=== PATIENT | male | born 1960 | race Caucasian/White ===

== ENCOUNTER 2018-02-13 10:04 | Emergency (ER) | payer OTHER, SELFPAY ==
[2018-02-13 10:05] VITALS: BP 163/90; PULSE 84; RESP 16; TEMP 36.4; O2SAT 98; BMI 29.8
--- NOTE | 2018-02-13 10:17 | RAD_ITS ---
STUDY: X-RAY - RIGHT KNEE REASON FOR EXAM: Male, 58 years old. Pain following recent hyperextension of the knee joint. TECHNIQUE: 3 view(s) of the knee. COMPARISON: None. FINDINGS: Normal visualized distal femur. Normal visualized proximal tibia and fibula. Normal proximal tibiofibular articulation. Normal medial femorotibial compartment. Normal lateral femorotibial compartment. Normal patellofemoral articulation. The soft tissue structures are unremarkable. RAD/Knee 3 Views IMPRESSION: Normal x-ray examination of the knee. Electronically Signed: Grant Bai MD at 11:00 EDT Tel [phone], Service support ,
--- NOTE | 2018-02-13 10:32 | ED.VISSUMM ---
- ER Visit Summary Date of Service: 02/13/18 Chief Complaint: Right knee pain History of Present Illness: The patient is a 58 M who injured his right knee 3 days ago. He tripped over a piece of machinery and landed on his right knee. He states he hyperextended it during that process. He has been icing, elevating and using ibuprofen at home. He states it is getting better. He also bought a brace and has been using it. He has a history of drop foot on the left which contributed to his fall. He talked to his employer today and they told him to come in to get an x-ray. Physical Examination: Right knee exam reveals tenderness to palpation in the lower portion of the anterior right knee. There is no swelling. He has full range of motion with pain. Drawer signs are negative Test Results: Right knee x-ray per my interpretation reveals no acute findings Emergency Department Course and Treatment: Patient likely has a sprain of the knee. He has been doing correct management at home including elevation, ibuprofen and bracing. He will continue this at home. Worker's Compensation forms will be completed. [facility]: [] Disposition: Discharge Impression: Right knee sprain This note was generated with LookTracker dictation software. It may contain incorrect words, spelling, and punctuation that were not noted in review of the chart prior to signing ED Disposition - Plan for ED Patient: Chief Complaint: Lower Extremity Injury Referrals: Demond Kim MD [Primary Care Provider] -
--- NOTE | 2018-02-13 11:04 | ED.DEP ---
ED Disposition - Plan for ED Patient: Disposition: Home or Assisted Living Chief Complaint: Lower Extremity Injury Instructions: ED Sprain Knee Referrals: Demond Kim MD [Primary Care Provider] -
[2018-02-13 11:32] VITALS: BP 127/88; PULSE 61; RESP 15; O2SAT 98
== END 2018-02-13 11:33 | disposition home or self-care (01) ==
PROVIDERS: Emergency Provider Emergency Medicine; Family Provider Family Medicine; PCP Family Medicine
DX: S83.91XA Sprain of unspecified site of right knee, initial encounter (principal); M21.372 Foot drop, left foot; E11.9 Type 2 diabetes mellitus without complications; W01.0XXA Fall on same level from slipping, tripping and stumbling without subsequent striking against object, initial encounter; Y93.9 Activity, unspecified; Y92.9 Unspecified place or not applicable; Z79.84 Long term (current) use of oral hypoglycemic drugs; Z79.899 Other long term (current) drug therapy
CPT/HCPCS: 73562; 99282

== ENCOUNTER 2021-04-24 12:52 | Outpatient (RCR) | payer MEDICAID, SELFPAY ==
--- NOTE | 2021-04-24 14:46 | HP.PTEVAL_ITS ---
Patient's Visit Information NICOLE MCKINNON is a 61 year old M referred to Physical Therapy by NAREN OLIVER with a diagnosis of L TSA 04/08/21. Date of Evaluation: 04/24/21 Physical Therapist: Julio Andrews, PT, ATC - Visit Plan Frequency: 2-3x /Week Duration: 4-6 Months Plan: L shoulder AROM/PROM/Mobs, stretching and strengthening, scap stab ex's, UBE, and HEP - Subjective DOS: 04/08/21. Pt reports he had a L shoulder replacement at that time. Pt reports he was in the hospital for 1 day, and has been home since. 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 Pt reports he has a sling but has not been wearing it since the surgeon told him he was healing well. Pt reports he has to sleep on a lazy boy chair sometimes secondary to L shoulder pain. No tingling or numbness in L UE at this time. Pt is L hand dominant. Pt reports he has just been resting his L shoulder over the past 2 weeks, but knows he needs to get his shoulder moving now. Pt reports his L shoulder pain is 0/10 at rest, 4/10 pain at worst - Pain L shoulder Pain Intensity (Out of 10): 0 Pain Intensity Range: 4 - Objective Neuro: B UE sensation is WNL to lgiht touch. B bicepital reflex= 2/3. Observation: Incision is healing well. No signs of infection. ROM: R shoulder flex= 140, abd= 125, ER= 60, IR mod limited. L shoulder flex= 75, abd= 45, ER= 0. MMT: L shoulder 3-/5. R shoulder 5/5 throughout - Goals Goal 1:: Decrease L shoulder pain x 50% to aid with sleep Goal Time Frame: 4-6 Weeks Goal 2:: Increase L shoulder strength x 1 grade to aid with IADL's Goal Time Frame: 4-6 Weeks Goal 3:: Increase L shoulder flex and abd ROM x 40 degrees to aid with overhead activity Goal Time Frame: 4-6 Weeks Goal 4:: I with HEP Goal Time Frame: 4-6 Weeks - Rehabilitation Potential Physical Therapy Diagnosis: Pt has L shoulder pain, weakness, and limited ROM secondary to L TSA Rehabilitation Potential: Good - Anticipated Interventions Patient/Client Instruction: Educate patient on: Condition, Plan of Care For the Purpose of:: To improve self management Therapeutic Exercise to Include: Strength training, Postural training, Flexibilty training, Passive ROM, Active ROM, Scapular Strength/Stabilization For the Purpose of:: To decrease pain, To decrease swelling/inflammation, To increase ROM, To improve muscle performance and motor function Cryotherapy (ice pack, ice massage): Yes For the Purpose of:: To decrease pain Thank you for the opportunity to evaluate your patient. For Medicare and Medicare HMO plans, please review the plan of care and approve it. It will need to be FAXED BACK to us at [phone] for Medicare purposes. For Medicare only, by signing this I certify the plan of care. Please let me know if there are questions or concerns regarding this plan of care. Physician Signature: Date:
--- NOTE | 2021-07-03 07:59 | HP.PT.NRP ---
NICOLE MCKINNON was seen in my office for initial evaluation on 04/24/21. The following Plan of Care was established for this patient: Initial Frequency: 2-3x /Week Initial Duration: 4-6 Months Patient/Client Instruction: Educate patient on: Condition, Plan of Care For the Purpose of:: To improve self management Therapeutic Exercise to Include: Strength training, Postural training, Flexibilty training, Passive ROM, Active ROM, Scapular Strength/Stabilization For the Purpose of:: To decrease pain, To decrease swelling/inflammation, To increase ROM, To improve muscle performance and motor function Cryotherapy (ice pack, ice massage): Yes For the Purpose of:: To decrease pain This patient was last seen in our office . Pertinent comments regarding their Physical therapy will appear below: Pt was evaluated for L shoulder pain on the date of 04/24/2021. Pt has not returned through todays date, and is discontinued at this time. At this point I will be discontinuing this patient from physical therapy. I would be happy to see this patient again in the future if found appropriate by the physician. Thank you! Julio Andrews, PT, ATC Balance/Gait/Functional tests - Balance/Special Test Scores Quick DASH Score: 59.0900
== END 2021-04-24 19:00 | disposition home or self-care (01) ==
LOC: PT 12:52
PROVIDERS: PCP Family Medicine
DX: Z47.1 Aftercare following joint replacement surgery (principal); Z96.612 Presence of left artificial shoulder joint
CPT/HCPCS: 97140; 97161

== ENCOUNTER 2022-09-01 22:30 | Emergency (ER) | payer MEDICAID, SELFPAY ==
[2022-09-01 22:31] VITALS: BP 178/88; PULSE 86; RESP 18; TEMP 36.6; O2SAT 98; BMI 34.9
--- NOTE | 2022-09-01 23:01 | EDS_ITS ---
HPI History of Present Illness Chief Complaint: Hyperglycemia Informant: patient and spouse/S.O. Onset/Context/Timing Onset: Days Context: Gradual Onset Timing: Continuous Current Severity: Mild Maximum Severity: Mild Narrative Narrative: 62-year-old male history of insulin-dependent diabetes, brain tumor and nonsmall cell lung cancer. He had elevated blood sugars for almost a week. Today his took his blood sugar was 630. She gave him subcu insulin 48 units x 2. Her last check was 586. Her blood sugar checked here was 389. He has had a mild cough. Denies any vomiting or diarrhea. No fever. No dysuria. He has never had DKA before. Prior similar symptoms: Yes Recent Illness/Hospitalization: No PFSH [facility] Medical History Diabetes High cholesterol Small cell lung cancer Home Medications Lovastatin [Mevacor] 80 mg PO DAILY 05/17/16 [History Last Taken Unknown] baclofen 10 mg tablet 10 mg PO QHS 05/17/16 [History Last Taken Unknown] coenzyme Q10 300 mg capsule (Co Q-10) 600 mg PO DAILY 05/17/16 [History Last Taken Unknown] glimepiride 4 mg tablet 4 mg PO DAILY 05/17/16 [History Last Taken Unknown] lisinopril 20 mg tablet 20 mg PO DAILY 05/17/16 [History Last Taken Unknown] metformin 500 mg tablet 1,000 mg PO BIDCM 05/17/16 [History Last Taken Unknown] multivitamin (Daily Multiple tablet) 1 ea PO DAILY 05/17/16 [History Last Taken Unknown] omega-3 fatty acids-fish oil 300 mg-1,000 mg capsule 1 ea PO DAILY 05/17/16 [History Last Taken Unknown] pioglitazone 30 mg tablet 30 mg PO DAILY 05/17/16 [History Last Taken Unknown] alectinib 150 mg capsule (Alecensa) 600 mg PO BID 09/01/22 [History Last Taken Unknown] Allergy/AdvReac Type Severity Reaction Status Date / Time No Known Allergies Allergy Verified 09/01/22 22:37 Social History Smoking Status: Never smoker ROS ROS ED ROS Narrative Cough. Elevated blood sugar. Review of Systems ROS Unobtainable: Denies due to encephalopathy Constitutional Constitutional ED: Denies chills or fever(s) Eyes Eyes: Denies blurry vision ENT ENT ED: Denies ear pain Cardiovascular Cardiovascular: Denies chest pain Respiratory/Chest Respiratory/Chest: Reports cough; Denies dyspnea Gastrointestinal Gastrointestinal: Denies abdominal pain, constipation or diarrhea Genitourinary Genitourinary ED: Denies dysuria or hematuria Musculoskeletal Musculoskeletal: Denies arthralgias Integumentary Denies abscess Neurologic Neurologic: Denies headache(s) Psychiatric Psychiatric: Denies anxiety Endocrine Endocrinology: Denies cold intolerance Hematologic/Lymphatic Hematologic/Lymphatic: Reports none Allergic/Immunologic Allergic/Immunologic ED: Denies mouth swelling or tongue swelling EXAM Physical Exam Narrative Exam Narrative: 62-year-old male no acute distress. Vital signs stable afebrile. Does not look septic or toxic. Pulse ox 90% on room air no hypoxia. No distress. H EENT exam unremarkable. Neck nontender no JVD. No lymphadenopathy. Lungs clear to auscultation bilaterally. Heart regular rhythm no murmur. Abdomen soft nontender. Moving all 4 extremities. He is awake and alert. Answering questions and following commands. Const Vital Signs: 09/01/22 22:31 Temperature 98 F Temperature Source Temporal Pulse Rate 86 Respiratory Rate 18 Blood Pressure 178/88 H Blood Pressure Mean 118 Pulse Ox 98 Oxygen Delivery Method Room Air Positive well nourished, well developed and obese; Negative for cachectic, contractures or unkempt General Appearance ED: well developed; Negative for unkempt, cachectic or contractures Nutritional Appearance: obese; Negative for cachectic HEENT Reports moist mucous membranes; Denies dry mucous membranes Negative for trauma or tenderness Mouth ED: No dry mucous membranes Mouth: No dry mucous membranes Eyes PERRL and EOMs intact bilaterally General Eye ED: Negative for pale conjunctiva or scleral icterus Neck no lymphadenopathy, supple and no JVD General: Negative for tenderness Lymph Lymphatic: Negative for other Resp normal respiratory effort Effort and Inspection: Negative for retractions Auscultation: Negative for rales, rhonchi or wheezes Cardio regular rate, regular rhythm, S1 normal heart sound, S2 normal heart sound and no murmurs Palpation: Negative for palpable S3 Rate: Negative for bradycardia Rhythm: Negative for abnormal rhythm GI normal to inspection, nondistended, normoactive bowel sounds, non-tender, non- distended and no masses Inspection: Negative for abdominal distention Auscultation: normoactive bowel sounds Palpation: soft; Negative for tender Back/Spine no CVA tenderness General Back: Negative for CVA tenderness Cervical Spine: Negative for cervical spine tenderness Thoracic Spine / Upper Back: Negative for thoracic spinal tenderness Lumbar Spine / Lower Back: Negative for lumbar spinal tenderness Extremity normal to inspection General Extremety ED: Negative for edema or tenderness General Extremity: Negative for edema Neuro oriented x3 Sensorium / Orientation: alert; Negative for orientation impaired, lethargic or stuporous Motor Exam: strength 5/5 throughout Psych mental status grossly normal Appearance: Negative for unkempt Attitude: No agitated Mood & Affect: Negative for depressed, anxious or tearful Skin no rashes or lesions noted and no wounds General Skin Exam: elasticity normal Lesions: No lesion noted Rashes: No rashes noted Trauma: Negative for abrasion Wounds: Negative for wounds noted MDM MDM MDM Narrative Medical decision making narrative: Diabetic with elevated blood sugars at home for the last week. Today the high was 630. is treating with subcu insulin x2 at home. Our last blood sugar was 389. He will be treated with a liter normal saline. Screening labs and acetone will be obtained. Clinically at this time he does not look like he is in DKA. Exam benign. Repeat exam patient doing well at 12:30 AM. Replete blood sugar was 370. Both he and family are comfortable with him being discharged home. Watch his sugars closely. Follow-up to ensure he is improving. Return if worse. Lab Data Attestation: I reviewed the patient's lab results. Lab results narrative: CBC shows a white count 12.2. H&H of 11.2 and 32.9. Platelets 206. Electrolytes show a gap of 7 BUN and creatinine are 44 and 1.64. Glucose of 430. BG T was 395. Acetone is negative. Patient is not in DKA. No old labs available on our system for comparison. Labs: Laboratory Results - last 24 hr 09/01/22 09/01/22 09/01/22 22:40 22:40 22:44 WBC 12.2 H RBC 3.40 L Hgb 11.2 L Hct 32.9 L MCV 96.8 H MCH 32.9 H MCHC 34.0 RDW Std Deviation 55.7 H RDW Coeff of Rajiv 15.8 H Plt Count 206 MPV 10.4 Sodium 142 Potassium 4.1 Chloride 107 Carbon Dioxide 28.0 Anion Gap 7 BUN 44 H Creatinine 1.64 H Estim Creat Clear Calc 50.60 Est GFR (MDRD) Af Amer 55 L Est GFR (MDRD) Non-Af 45 L BUN/Creatinine Ratio 26.8 H Glucose 430 H Calcium 8.8 Acetone Level POC Glucose 395 H 09/01/22 09/02/22 23:05 00:02 WBC RBC Hgb Hct MCV MCH MCHC RDW Std Deviation RDW Coeff of Rajiv Plt Count MPV Sodium Potassium Chloride Carbon Dioxide Anion Gap BUN Creatinine Estim Creat Clear Calc Est GFR (MDRD) Af Amer Est GFR (MDRD) Non-Af BUN/Creatinine Ratio Glucose Calcium Acetone Level NEGATIVE POC Glucose 370 H Discharge Plan Triage Chief Complaint: Hyperglycemia ED Provider: Moshe Mariee Dx/Rx/DC Orders Prescriptions: No Action multivitamin [Daily Multiple] 1 EACH tablet 1 ea PO DAILY metformin 500 MG tablet 1,000 mg PO BIDCM lisinopril 20 MG tablet 20 mg PO DAILY baclofen 10 MG tablet 10 mg PO QHS glimepiride 4 MG tablet 4 mg PO DAILY pioglitazone 30 MG tablet 30 mg PO DAILY Co Q-10 300 MG capsule 600 mg PO DAILY omega-3 fatty acids-fish oil 1 EACH capsule 1 ea PO DAILY Lovastatin [Mevacor] 40 MG tablet 80 mg PO DAILY Alecensa 150 mg Capsule 600 mg PO BID Rx Instructions: must administer with a meal/food Primary Care Provider: Demond Kim Referrals: Demond Kim MD [Primary Care Provider] -
[2022-09-01 23:06] LABS: Bedside Glucose 395 mg/dL (74-106)
[2022-09-01 23:10] LABS: Hematocrit 32.9 % (40-54); Hemoglobin 11.2 g/dL (13.0-16.5); Mean Corpuscular Hgb 32.9 pg (27.0-32.0); Mean Corpuscular Volume 96.8 fL (80-94); Mean Platelet Vol. 10.4 fl (6.2-12.0); Platelet Count 206 K/mm3 (150-450); RBC Distribution Width CV 15.8 % (11.6-14.6); RBC Distribution Width SD 55.7 fl (35.1-43.9); White Blood Count 12.2 K/mm3 (4.4-11.0)
[2022-09-01 23:24] LABS: Anion Gap 7 (5-15); BUN 44 mg/dL (7-18); BUN/Creat Ratio 26.8 RATIO (10-20); Calcium,Total 8.8 mg/dL (8.5-10.1); Chloride 107 mmol/L (98-107); Creatinine, Serum 1.64 mg/dL (0.70-1.30); EST Glomerular Filtration Rate 45 mL/min (>60); Est Glom Filt Rate - Afr Amer 55 mL/min (>60); Glucose 430 mg/dL (74-106); Potassium 4.1 mmol/L (3.5-5.1); Sodium Level 142 mmol/L (136-145)
[2022-09-02] MEDS: 0.9% Normal Saline 1,000 ML 1000 ML IV (00:05)
[2022-09-02 00:21] LABS: Bedside Glucose 370 mg/dL (74-106)
[2022-09-02 00:39] VITALS: BP 140/74; PULSE 88; RESP 17; RESP 18; O2SAT 98
== END 2022-09-02 00:40 | disposition home or self-care (01) ==
PROVIDERS: Emergency Provider Emergency Medicine; PCP Family Medicine; Visit Provider Emergency Medicine
DX: E11.65 Type 2 diabetes mellitus with hyperglycemia (principal); E78.00 Pure hypercholesterolemia, unspecified; Z85.118 Personal history of other malignant neoplasm of bronchus and lung; Z79.899 Other long term (current) drug therapy; Z79.84 Long term (current) use of oral hypoglycemic drugs
CPT/HCPCS: 80048; 82009; 82962; 85027; 99283; J7030; A4216

== ENCOUNTER 2025-06-16 01:07 | Observation (INO) | payer MEDICARE, SELFPAY ==
[2025-06-16] VITALS (15 sets, daily range): BP systolic 139–171; BP diastolic 77–92; PULSE 83–97; RESP 16–18; TEMP 36.2–37.1; O2SAT 92–98; BMI 32.7; BMI 33.0
--- NOTE | 2025-06-16 01:25 | ED.VIS.STROK ---
HPI History of Present Illness Chief Complaint: Alt LOC Informant: patient, spouse/S.O. and EMS Narrative Narrative: 65-year-old male brought in due to confusion. I met EMS in the room and evaluated the patient initially, the report was that he was acting funny, trying to go outside in bare feet and underwear trying to say that he had something to do but then acted confused and could not think of what he wanted to say, he was going to the kitchen sink and telling his that he needed to use the bathroom and was about to start urinating before she intervened. She came a little later and provided more history including some of these details and the fact that he was last normal at about 2030 in the evening, except that she noticed his left eyelid seemed like it was a little droopy. He went to bed and then got up acting like this, arrives here around 0115. Patient denies having any pain. He is on no anticoagulants. No recent injury or head trauma. states that he is an insulin-dependent diabetic but does not take his insulin like he is supposed to. She also states that he has small cell lung cancer as well as some type of mass in his brain, she is not sure if it is the small cell lung cancer or something different, but he had some gamma knife treatments for it to the point where they had it shrunk down to the size of a pea. She states he is supposed to be on chemotherapy but insurance has not covered it so they have not had anything started yet. He has never had symptoms like this before. [facility] Medical History High cholesterol Diabetes Small cell lung cancer Medical History unable to obtain Home Medications ?Medication ?Instructions ?Recorded ?Last Taken ?Type coenzyme Q10 300 mg capsule (Co 600 mg PO DAILY 05/17/16 Unknown History Q-10) omega-3 fatty acids-fish oil 300 1 ea PO DAILY 05/17/16 Unknown History mg-1,000 mg capsule atorvastatin 20 mg tablet 20 mg PO QHS 06/16/25 Unknown History dulaglutide 4.5 mg/0.5 mL 4.5 mg subcut QWEEK 06/16/25 Unknown History subcutaneous pen injector (Trulicity) insulin glargine U-300 conc 300 40 unit subcut BID 06/16/25 Unknown History unit/mL (3 mL) subcutaneous pen (Toujeo Max U-300 SoloStar) insulin lispro 100 unit/mL 1 sliding scale dose subcut TIDCM 06/16/25 Unknown History subcutaneous pen levetiracetam 750 mg tablet 750 mg PO BID 06/16/25 Unknown History lorlatinib 100 mg tablet (Lorbrena) 100 mg PO DAILY 06/16/25 Unknown History sertraline 100 mg tablet 100 mg PO DAILY 06/16/25 Unknown History terbinafine HCl 250 mg tablet 250 mg PO DAILY 06/16/25 Unknown History vitamin B complex 1 tab PO DAILY 06/16/25 Unknown History Allergy/AdvReac Type Severity Reaction Status Date / Time No Known Allergies Allergy Verified 09/01/22 22:37 Family History no significant family his Surgical History unable to obtain Social History Smoking Status: Never smoker ROS ROS ED Constitutional Constitutional ED: Denies chills or fever(s) Eyes Eyes: Denies change in vision or diplopia ENT ENT ED: Denies rhinorrhea or sore throat Cardiovascular Cardiovascular: Denies chest pain or palpitations Respiratory/Chest Respiratory/Chest: Denies cough or dyspnea Gastrointestinal Gastrointestinal: Denies abdominal pain, diarrhea, nausea or vomiting Genitourinary Genitourinary ED: Denies dysuria or hematuria Musculoskeletal Musculoskeletal: Denies back pain or neck pain Integumentary Denies abscess or rash Neurologic Neurologic: Reports abnormal speech and confusion; Denies headache(s), paresthesias or weakness Psychiatric Psychiatric: Denies anxiety or suicidal thoughts EXAM Physical Exam Const Vital Signs: 06/16/25 01:10 06/16/25 01:10 06/16/25 01:14 Temperature 98.6 F 98.7 F Temperature Source Oral Oral Pulse Rate 93 94 Respiratory Rate 16 16 Respiratory Effort Normal Respiratory Pattern Normal Blood Pressure 139/87 H 159/82 H Blood Pressure Mean 104 107 Pulse Ox 95 96 Oxygen Delivery Method Room Air Room Air 06/16/25 01:31 06/16/25 01:39 06/16/25 01:45 Temperature Temperature Source Pulse Rate 88 91 Respiratory Rate 18 16 Respiratory Effort Respiratory Pattern Blood Pressure 143/89 H 158/79 H Blood Pressure Mean 107 105 Pulse Ox 96 96 96 Oxygen Delivery Method Room Air Room Air Room Air 06/16/25 02:15 07/20/25 02:45 06/16/25 03:00 Temperature Temperature Source Pulse Rate 86 85 86 Respiratory Rate 16 18 16 Respiratory Effort Respiratory Pattern Blood Pressure 150/77 H 145/84 H 142/92 H Blood Pressure Mean 101 104 108 Pulse Ox 96 96 96 Oxygen Delivery Method Room Air Room Air Room Air Positive well nourished and well developed General Appearance ED: well developed and NAD HEENT Reports moist mucous membranes normocephalic and atraumatic Eyes PERRL and EOMs intact bilaterally Neck full ROM, no lymphadenopathy and supple Chest Wall inspection of chest normal and palpation of chest normal Resp normal respiratory effort and clear to auscultation bilaterally Cardio regular rate, regular rhythm and no murmurs GI non-tender and non-distended Auscultation: normoactive bowel sounds Palpation: soft Back/Spine no CVA tenderness General Back: other FROM Extremity normal to inspection General Extremety ED: Negative for edema, pulses abnormal or tenderness General Extremity: Negative for edema or pulses abnormal Neuro oriented x3, CN's II-XII intact bilaterally and no sensory deficits noted Neuro Narrative: Mild aphasia and dysarthria. States he feels tired and keeps wanting to shut his eyes but alerts to voice every time he is asked. Visual cramer are all intact. Extraocular movements intact. No lower facial droop or forehead asymmetry. No lateralizing neurologic findings in the periphery. Sensorium / Orientation: awake and alert Motor Exam: strength 5/5 throughout Skin no rashes or lesions noted and no wounds MDM MDM MDM Narrative Medical decision making narrative: Stroke alert was called given his acute expressive aphasia that seems to be presenting like disorientation, he is outside of the time window for thrombolytics since he woke up this way and went to bed more than 4 hours ago, we did CT and CTA simultaneously, I reviewed the images and I agree with the reports from the radiologist, suggesting no bleed and no LVO. I discussed with stroke neurology, who agrees with working him up as a possible acute stroke. Apparently he has a cerebral mass that was noted in the past that he received gamma knife for, there is no indication of any mass effect or edema on the CT. His status is unchanged neurologically and reevaluation. Discussed with hospitalist for admission for continued stroke workup. Lab Data Attestation: I reviewed the patient's lab results. Labs: Laboratory Results - last 24 hr 06/16/25 06/16/25 01:17 01:20 WBC 9.7 RBC 4.18 L Hgb 13.4 Hct 36.4 L MCV 87.1 MCH 32.1 H MCHC 36.8 H RDW Std Deviation 39.3 RDW Coeff of Rajiv 12.4 Plt Count 136 L MPV 9.5 Immature Gran % (Auto) 0.300 Neut % (Auto) 68.0 Lymph % (Auto) 21.1 Bowman % (Auto) 6.4 Eos % (Auto) 3.6 Baso % (Auto) 0.6 Absolute Neuts (auto) 6.6 Absolute Lymphs (auto) 2.04 Nucleated RBC % 0 PT 12.7 INR 0.9 APTT 25.2 Sodium 137 Potassium 3.3 Chloride 104 Carbon Dioxide 19.1 L Anion Gap 15 BUN 30 H Creatinine 1.38 H Estim Creat Clear Calc 67.30 Est GFR (MDRD) Non-Af 56 L BUN/Creatinine Ratio 21.4 H Glucose 102 H Calcium 9.1 Troponin T High Sens 20 POC Glucose 102 Radiography Diagnostic Testing: Clinical Impression(s) from Imaging Studies Brain CT 06/16/25 01:29 IMPRESSION: No acute intracranial findings Reading Location: [facility] Head/Neck CTA 06/16/25 01:29 IMPRESSION: No acute cervical or intracranial arterial pathology. No thrombosis, high-grade stenosis, dissection, or aneurysm. Patent dural venous sinuses. Reading Location: [facility]- Rhythm Strip Rhythm Strip: Sinus Rhythm Rate: 90 Ectopy: None EKG Initial EKG: Attestation: I personally reviewed and interpreted this EKG as follows: Interpretation: Sinus Rhythm, No Acute Injury Pattern, RBBB and LAFB Prior EKG tracings: not available for review Prior: No Prior Management Discussion w/another healthcare provider: Hospitalist and [employer] (Stroke neurology) Critical Care Time Critical Care Time: Yes Critical care time (excluding procedures): 30-74 minutes (33 min), Including time spent:, Discussing w/Patient &/or Family/Senior Wealth Advisor, Discussing w/Consultants, Arranging Admission or Transfer and Performing Direct Patient Care at Bedside Discharge Plan Triage Chief Complaint: Alt LOC Other Complaint: Weakness ED Provider: Ten Kaur Dx/Rx/DC Orders Clinical Impression: Expressive aphasia, Chronic renal insufficiency, Disorientation Prescriptions: No Action Co Q-10 300 MG capsule 600 mg PO DAILY omega-3 fatty acids-fish oil 1 EACH capsule 1 ea PO DAILY sertraline 100 mg tablet 100 mg PO DAILY terbinafine HCl 250 mg tablet 250 mg PO DAILY Lorbrena 100 mg tablet 100 mg PO DAILY insulin lispro 100 unit/mL insulin pen 1 sliding scale dose SUBCUT TIDCM Patient Comments: INJECT 30 UNITS SUBCUTANEOUSLY WITH BREAKFAST AND 34 UNITS WITH LUNCH AND 34 UNITS WITH SUPPER PLUS SLIDING SCALE: 3 UNITS FOR EVERY 50 OVER 150 (150 UNITS DAILY TDD) SLIDING SCALE ON PRE MEAL BLOOD SUGAR ONLY insulin glargine U-300 conc [Toujeo Max U-300 SoloStar] 300 unit/mL (3 mL) insulin pen 40 unit subcut BID Trulicity 4.5 mg/0.5 mL pen injector 4.5 mg subcut QWEEK atorvastatin 20 mg tablet 20 mg PO QHS levetiracetam 750 mg tablet 750 mg PO BID vitamin B complex Tablet 1 tab PO DAILY Primary Care Provider: Demond Kim Referrals: Demond Kim MD [Primary Care Provider] - Print Language: Pakistani Disposition Disposition: Acute Care Hospital [facility] NIHSS NIHSS 1a. Level of Consciousness: 1 - Not alert; Arousable by minor stimuli to obey, answer & respond 1b. LOC Questions: 0 - Answers BOTH questions correctly 1c. LOC Commands: 0 - Performs BOTH tasks correctly 2. Best Gaze: 0 - Normal 3. Visual: 0 - No visual loss 4. Facial Palsy: 0 - Normal symmetrical movements 5a. Left Arm: 0 - No drift; arm holds 90 (or 45) degrees for full 10 seconds 5b. Right Arm: 0 - No drift; arm holds 90 (or 45) degrees for full 10 seconds 6a. Left Le - No drift; leg holds 30-degree position for full 5 seconds 6b. Right Le - No drift; leg holds 30-degree position for full 5 seconds 7. Limb Ataxia: 0 - Absent 8. Sensory: 0 - Normal; no sensory loss 9. Best Language: 1 - Rxcr-[id number] aphasia; 10. Dysarthria: 1 = Gryu-ug-wjlpqtqv dysarthria; 11. Extinction and Inattention: 0 - No abnormality Total: 3 Stroke Questions Stroke Team Activated: Yes IV Thrombolytic Administered: No (due to timing)
--- NOTE | 2025-06-16 01:29 | CT_ITS ---
PROCEDURE: STROKE BRAIN/HEAD WITHOUT CONT 06/16/2025 REASON FOR EXAM: NEURO DEFICIT, ACUTE, STROKE SUSPECTED TECHNIQUE: STROKE BRAIN/HEAD WITHOUT CONT Coronal and Sagittal reconstruction series were provided. One or more dose reduction techniques were used (e.g., Automated exposure control, adjustment of the mA and/or kV according to patient size, use of iterative reconstruction technique. RADIATION DOSE SUMMARY: CTDlvol: 45 mGy DLP: 864 mGycm COMPARISON: No FINDINGS: Mild atrophy. Arterial calcifications. No acute abnormal brain densities. No intracranial hemorrhage. No hydrocephalus or midline shift. No acute scalp or skull pathology. Unremarkable orbits. Mild sinus opacification. CT/STROKE Brain/Head without Cont IMPRESSION: No acute intracranial findings Reading Location: [place] [id number]
--- NOTE | 2025-06-16 01:29 | CT_ITS ---
PROCEDURE: STROKE CTA HEAD AND NECK W/CON 06/16/2025 REASON FOR EXAM: NEURO DEFICIT, ACUTE, STROKE SUSPECTED TECHNIQUE: STROKE CTA HEAD AND NECK W/CON Multiplanar Sagittal and Coronal images were obtained. One or more dose reduction techniques were used (e.g., Automated exposure control, adjustment of the mA and/or kV according to patient size, use of iterative reconstruction technique). RADIATION DOSE SUMMARY: CTDlvol: 50 mGy DLP: 800 mGycm COMPARISON: Head CT same day FINDINGS: Lung apices are clear. Unremarkable superior mediastinum. 2 cm left thyroid mass, recommend ultrasound. Cervical spine degeneration. No acute neck soft tissue pathology. No abnormal brain enhancement. Unremarkable orbits. Mild sinus opacification. Unremarkable thoracic arch. The common carotid arteries, extracranial internal carotid arteries, and vertebral arteries are patent. No high-grade stenosis, dissection, or aneurysm. There is bilateral, laku-fjrqvvl-bcvq-right, mild/moderate partially calcified bulb region plaque. Intracranial arteries are patent. There is bilateral bulb region calcified plaque. No high-grade stenosis, dissection, or aneurysm. Patent dural venous sinuses. CT/STROKE CTA Head AND Neck W/Con IMPRESSION: No acute cervical or intracranial arterial pathology. No thrombosis, high-grad e stenosis, dissection, or aneurysm. Patent dural venous sinuses. Reading Location: [place] [address]
[2025-06-16 01:33] LABS: Hematocrit 36.4 % (40-54); Hemoglobin 13.4 g/dL (13.0-16.5); Immature Granulocytes Count 0.030 X10^3/uL (0.0-0.0); Mean Corp Hgb Conc 36.8 g/dL (32-36); Mean Corpuscular Volume 87.1 fL (80-94); Mean Platelet Vol. 9.5 fl (6.2-12.0); NRBC Flagged by Analyzer 0 % (0-5); Platelet Count 136 K/mm3 (150-450); RBC Distribution Width CV 12.4 % (11.6-14.6); RBC Distribution Width SD 39.3 fl (35.1-43.9); Red Blood Count 4.18 M/mm3 (4.6-6.2); White Blood Count 9.7 K/mm3 (4.4-11.0)
[2025-06-16 01:44] LABS: Partial Thromboplast Time 25.2 Seconds (24.1-36.2); Prothrombin Time (Protime)PT. 12.7 SECONDS (11.7-14.9)
[2025-06-16 01:55] LABS: Anion Gap 15 (5-15); BUN 30 mg/dL (4-19); BUN/Creat Ratio 21.4 RATIO (10-20); Calcium,Total 9.1 mg/dL (7.6-11.0); Carbon Dioxide 19.1 mmol/L (21.0-32.0); Chloride 104 mmol/L (98-108); Estimated Creatinine Clearance 67.30 ml/min (50-250); Glucose 102 mg/dL (70-99); Potassium 3.3 mmol/L (3.3-5.1); Troponin T High Sensitivity 20 ng/L (<=22)
--- NOTE | 2025-06-16 03:07 | PCM.HP.STD ---
[facility] - General General Date of Admission: 06/16/25 Date of Service: 06/16/25 Chief Complaint: Confusion and Slurred Speech. HPI Narrative SHERI MCKINNON, is a 65 M with a past medical history of hyperlipidemia; on atorvastatin, obesity; with BMI of 32.7 this admission, DM-2; of unknown control on insulin glargine 40U sq BID, insulin lispro SSI TID AC and dulaglutide, history of non-small cell lung cancer; with metastasis to brain on lorlatinib, seizure disorder; on levetiracetam, depression; on sertraline and OA who presents to [facility] ER complaining of confusion and slurred speech. Mr. Mckinnon's reported to the ER physician his last known normal was around 8:30 PM when he went to bed but then when he woke up later around 1:15 AM the patient's noted he was acting funny and trying to go outside with his bare feet and underwear obviously confused. He then went to the kitchen seen telling his that he needed to use the bathroom and was about to start urinating before she intervened. She also noted slurred speech and a questionable transient drooping of the Left eye so she decided to bring him in for further evaluation and treatment. She also informed the ER physician that he does not take his insulin as prescribed and that he had a small mass in his brain with subsequent gamma knife treatments to the point where it shrunk down to the size of a pea but they had not had follow-up imaging since that time. She also mentioned that he is supposed to be on chemotherapy but his insurance has not covered it yet so he has not started it yet. Finally, she denies any similar previous episodes like this in the past. In the ER he was initially called as a 'stroke alert' with head CT without contrast that revealed no acute intracranial findings followed by CTA of the head and neck with IV contrast that revealed no acute cervical or intracranial arterial pathology, no thrombosis, high-grade stenosis, dissection or aneurysm with patent dural venous sinuses. He was then admitted to the PCU under observation status for ongoing care for stay that is expected to be less than 2 midnights. [facility] Medical History (Updated 06/16/25 @ 03:[address] Gabriel Coleman, DO) High cholesterol Diabetes Small cell lung cancer Medical History unable to obtain Home Medications ?Medication ?Instructions ?Recorded ?Last Taken ?Type coenzyme Q10 300 mg capsule (Co 600 mg PO DAILY 05/17/16 Unknown History Q-10) omega-3 fatty acids-fish oil 300 1 ea PO DAILY 05/17/16 Unknown History mg-1,000 mg capsule atorvastatin 20 mg tablet 20 mg PO QHS 06/16/25 Unknown History dulaglutide 4.5 mg/0.5 mL 4.5 mg subcut QWEEK 06/16/25 Unknown History subcutaneous pen injector (Trulicity) insulin glargine U-300 conc 300 40 unit subcut BID 06/16/25 Unknown History unit/mL (3 mL) subcutaneous pen (Toujeo Max U-300 SoloStar) insulin lispro 100 unit/mL 1 sliding scale dose subcut TIDCM 06/16/25 Unknown History subcutaneous pen levetiracetam 750 mg tablet 750 mg PO BID 06/16/25 Unknown History lorlatinib 100 mg tablet (Lorbrena) 100 mg PO DAILY 06/16/25 Unknown History sertraline 100 mg tablet 100 mg PO DAILY 06/16/25 Unknown History terbinafine HCl 250 mg tablet 250 mg PO DAILY 06/16/25 Unknown History vitamin B complex 1 tab PO DAILY 06/16/25 Unknown History Allergy/AdvReac Type Severity Reaction Status Date / Time No Known Allergies Allergy Verified 09/01/22 22:37 Family History no significant family his Surgical History unable to obtain Social History Smoking Status: Never smoker ROS ROS Narrative Review of Systems: Constitutional: Patient denies fever or chills. Eyes: Patient denies change in vision or discharge from eyes. ENT: Patient denies runny nose, sore throat or ear pain. Resp: Patient denies shortness of breath or cough. CV: Patient denies chest pain, palpitations, heart racing or lower extremity edema. GI: Patient denies abdominal pain, nausea, vomiting, diarrhea or constipation. : Patient denies dysuria or hematuria. MSK: Patient denies neck pain or back pain. Skin: Patient denies rash, abscess, wounds or jaundice. Psych: Patient had obvious confusion with bizarre behavior but he denies symptoms of uncontrolled depression or anxiety. Neuro: Patient had slurred speech with transient Left eye droop and confusion as per HPI. He denies headache, paresthesias or other focal neurologic deficits. Allergy: Patient denies lip swelling, tongue swelling or urticaria. Hematology: Patient denies easy bleeding or easy bruisability. Endocrinology: Patient denies polyuria, polydipsia, polyphagia or heat/cold intolerance. 14 point ROS otherwise negative except for positives noted above in HPI. Vital Signs Vital Signs Vital Signs: 06/16/25 01:10 06/16/25 01:10 06/16/25 01:14 Temperature 98.6 F 98.7 F Temperature Source Oral Oral Pulse Rate 93 94 Respiratory Rate 16 16 Respiratory Effort Normal Respiratory Pattern Normal Blood Pressure 139/87 H 159/82 H Blood Pressure Mean 104 107 Pulse Ox 95 96 Oxygen Delivery Method Room Air Room Air 06/16/25 01:31 06/16/25 01:39 06/16/25 01:45 Temperature Temperature Source Pulse Rate 88 91 Respiratory Rate 18 16 Respiratory Effort Respiratory Pattern Blood Pressure 143/89 H 158/79 H Blood Pressure Mean 107 105 Pulse Ox 96 96 96 Oxygen Delivery Method Room Air Room Air Room Air 06/16/25 02:15 06/16/25 02:45 Temperature Temperature Source Pulse Rate 86 85 Respiratory Rate 16 18 Respiratory Effort Respiratory Pattern Blood Pressure 150/77 H 145/84 H Blood Pressure Mean 101 104 Pulse Ox 96 96 Oxygen Delivery Method Room Air Room Air Weight Weight: 241 lb 6.499 oz Body Mass Index (BMI) 32.7 Physical Exam Const alert, oriented x3 and no apparent distress General Appearance: cooperative Orientation / Consciousness: confused HEENT normocephalic, head/scalp atraumatic, hearing grossly normal bilaterally and moist oral mucous membranes Eyes PERRL, EOMs intact bilaterally and conjunctivae normal Neck no lymphadenopathy, supple and no JVD Resp normal respiratory effort, no retractions, no use of accessory muscles and clear to auscultation bilaterally Cardio regular rate and regular rhythm GI normal to inspection, nondistended, normoactive bowel sounds, soft to palpation, non-tender and non-distended GI Narrative: Obese. Extremity normal to inspection, full ROM and no clubbing, cyanosis or edema Skin Skin Narrative: Patient has no evidence of rash, abscess, wounds or jaundice. Neuro oriented x3, CN's II-XII intact bilaterally and moves all extremities Neuro Narrative: Patient noted to have mild dysarthria and aphasia. No facial droop or forehead asymmetry noted. No lateralizing neurologic findings in the periphery with otherwise normal sensory and motor function. Sensorium / Orientation: awake, alert, oriented to person, oriented to place and oriented to time Motor Exam: strength 5/5 throughout Psych affect normal Results Medical Records Data Attestation: I reviewed the patient's medical records Lab / Micro Data Attestation: I reviewed the patient's lab results. 06/16/25 01:20 06/16/25 01:20 Labs: Laboratory Results - last 24 hr 06/16/25 01:17: POC Glucose 102 06/16/25 01:20: WBC 9.7, RBC 4.18 L, Hgb 13.4, Hct 36.4 L, MCV 87.1, MCH 32.1 H, MCHC 36.8 H, RDW Std Deviation 39.3, RDW Coeff of Rajiv 12.4, Plt Count 136 L, MPV 9.5, Immature Gran % (Auto) 0.300, Neut % (Auto) 68.0, Lymph % (Auto) 21.1, [place] % (Auto) 6.4, Eos % (Auto) 3.6, Baso % (Auto) 0.6, Absolute Neuts (auto) 6.6, Absolute Lymphs (auto) 2.04, Nucleated RBC % 0, PT 12.7, INR 0.9, APTT 25.2, Sodium 137, Potassium 3.3, Chloride 104, Carbon Dioxide 19.1 L, Anion Gap 15, BUN 30 H, Creatinine 1.38 H, Estim Creat Clear Calc 67.30, Est GFR (MDRD) Non-Af 56 L, BUN/Creatinine Ratio 21.4 H, Glucose 102 H, Calcium 9.1, Troponin T High Sens 20 Imaging Radiology Impression Brain CT 06/16/25 01:29 IMPRESSION: No acute intracranial findings Reading Location: [facility] Head/Neck CTA 06/16/25 01:29 IMPRESSION: No acute cervical or intracranial arterial pathology. No thrombosis, high-grade stenosis, dissection, or aneurysm. Patent dural venous sinuses. Reading Location: [facility] Assessment & Plan Assessment/Plan (1) Expressive aphasia: (2) Confusion: (3) Diabetes mellitus, type 2: QUALIFIERS: Diabetes mellitus complication status: without complication Diabetes mellitus mcc insulin use: with mcc use Qualified Code(s): E11.9 - Type 2 diabetes mellitus without complications; Z79.4 - assisted (current) use of insulin (4) Small cell lung cancer: QUALIFIERS: Laterality: unspecified laterality Lung location: unspecified part of lung Qualified Code(s): C34.90 - Malignant neoplasm of unspecified part of unspecified bronchus or lung (5) Seizure disorder: (6) Obesity (BMI 30.0-34.9): (7) High cholesterol: PLAN: Plan 1. Mild aphasia and dysarthria with confusion and transient left eyelid droop concerning for TIA versus CVA - Admit to PCU under observation status. Give baby aspirin and statin. Check MRI of brain to evaluate for CVA. Check echocardiogram to evaluate LVEF. Check TSH, B12, folate, lipid profile, ESTHER and UDS to evaluate for possible reversible causes of confusion and neurologic dysfunction. Finally, we will consult [facility] to see this patient on rounds in the a.m. for further recommendations with help appreciated in advance. 2. DM-2; of unknown control on insulin glargine 40U sq BID, insulin lispro SSI TID AC and dulaglutide complicating #1 - ADA diet if patient passes swallow evaluation. Check FSBS q. AC/HS plus SSI. Cut insulin glargine dose by approximately 30% to avoid hypoglycemia. Check hemoglobin A1c to objectively evaluate quality of diabetic control. 3. History of non-small cell lung cancer; with metastasis to brain on lorlatinib compounding #1 & #2 - No signs of mass on head CT. Check CT scan of lung to evaluate for mass. 4. Seizure disorder; on levetiracetam BID adding to the medical complexity of #1 - #3 - Maintain levetiracetam as before and check EEG. Check serum prolactin to evaluate for evidence seizure activity. 5. Obesity; with BMI of 32.7 this admission adding to the burden of disease outlined from #1 - #3 - Weight loss will be recommended. Check TSH. This complicates his case may Hampe recovery. 6. Hyperlipidemia; on atorvastatin - Maintain statin and check Lipid Profile in light of #1. 7. Depression; on sertraline - Resume sertraline as previous. 8. OA - Give acetaminophen as needed pain or fever. 9. DVT prophylaxis - Enoxaparin 40 mg sq daily plus SCD's. Total time: Approximately (but not less than) 85 minutes. Charges/Coding Visit Charges OBSV E&M: 96200 Observ/hosp same date L3
--- NOTE | 2025-06-16 03:45 | MRI_ITS ---
PROCEDURE: BRAIN WITHOUT CONTRAST 06/16/2025 REASON FOR EXAM: MILD APHASIA AND DYSARTHRIA W/ CONFUSION; R/O CVA. TECHNIQUE: BRAIN WITHOUT CONTRAST Multiplanar and multisequence images were obtained. COMPARISON: Noncontrast CT head, CTA head and neck earlier same day. FINDINGS: Visualization is slightly limited by metallic streak artifact from right dental hardware. Brain: Mild cerebral atrophy and chronic periventricular white matter disease. No area of mismatched hyperintensity on diffusion-weighted imaging to suggest acute infarct. Tiny chronic infarct in the left cerebellar lobe. No abnormal hemosiderin deposition visualized on GRE imaging. Ventricles: Consistent with the overall degree of mild cerebral atrophy. No ventriculomegaly. Major Intracranial Vessels: Better visualized on same-day CTA. Sinuses: Minimal mucosal thickening. Mastoids: Clear. Unremarkable orbits. MRI/Brain without Contrast IMPRESSION: 1. No acute abnormality visualized on MRI brain given limitations. 2. Chronic findings as described. Reading Location: [id number]
--- NOTE | 2025-06-16 03:45 | ECHOCS_ITS ---
Reason For Study Reason For Study: TIA/CVA Procedure This was a 2D Doppler, Color Flow transthoracic echocardiogram. The study was technically difficult. Contrast injection was performed. Exam performed portable in patient room. Left Ventricle Normal LV size. Moderate eccentric left ventricular hypertrophy. The left ventricular ejection fraction is 45 %. Stage 1 diastolic dysfunction. There is borderline global hypokinesis of the left ventricle. Right Ventricle Normal RV size. Normal systolic function. Atria Normal left atrium. Normal right atrium. Mitral Valve Normal mitral valve. Tricuspid Valve Normal tricuspid valve. Mild (1+) tricuspid valve insufficiency. Pulmonary artery systolic pressure is 30 mmHg. Aortic Valve Trisinus/trileaflet aortic valve. Mild focal aortic valve calcification. Mild (1+) aortic valve insufficiency. Pulmonic Valve The pulmonic valve is not well visualized. Great Vessels Mildly dilated aortic root. The pulmonary artery is normal size. Inferior vena cava collapse with respiration. Pericardium/Pleural No pericardial effusion. Medication Diluted definity 3ml given slow IV push to enhance endocardial definition. MMode/2D Measurements & Calculations LVIDd: 5.1 cm IVSd: 1.6 cm Ao root diam: 3.9 cm LVIDs: 4.0 cm LVPWd: 1.1 cm RVDd: 3.5 cm FS: 21.7 % LAV(MOD-bp): 73.0 ml LVAd ap4: 33.7 cm2 SV(MOD-sp4): 55.6 ml LAV(MOD-bp) Indexed: 31.5 ml/m2 LVLd ap4: 8.1 cm SI(MOD-sp4): 24.0 ml/m2 LAV(MOD-sp2): 74.6 ml EDV(MOD-sp4): 115.9 ml LAV(MOD-sp4): 63.4 ml EDV(sp4-el): 119.0 ml LVAs ap4: 23.5 cm2 LVLs ap4: 7.4 cm ESV(MOD-sp4): 60.2 ml ESV(sp4-el): 63.5 ml EF(MOD-sp4): 48.0 % EF(sp4-el): 46.6 % SV(sp4-el): 55.5 ml LA A4 area: 20.3 cm2 LA dimension(2D): 3.9 cm RA A4 area: 16.4 cm2 Time Measurements MV dec time: 0.26 sec Doppler Measurements & Calculations MV E max ankit: 47.1 cm/sec Lat Peak E' Ankit: 9.7 cm/sec Med Peak E' Ankit: 6.0 cm/sec MV A max ankit: 61.6 cm/sec E/E' lat: 4.9 E/E' med: 7.8 MV E/A: 0.76 MV V2 max: 71.2 cm/sec MV P1/2t max ankit: 60.1 cm/sec Ao V2 max: 101.3 cm/sec MV max P.0 mmHg MV P1/2t: 93.3 msec Ao max P.2 mmHg MV V2 mean: 42.0 cm/sec MV dec slope: 188.7 cm/sec2 Ao V2 mean: 73.9 cm/sec MV mean P.82 mmHg MVA(P1/2t): 2.4 cm2 Ao mean P.5 mmHg MV V2 VTI: 17.3 cm Ao V2 VTI: 21.5 cm AV (velocity ratio): 0.76 AI max ankit: 408.1 cm/sec LV V1 max: 71.8 cm/sec PA V2 max: 93.3 cm/sec AI max P.6 mmHg LV V1 max P.1 mmHg AI dec slope: 182.6 cm/sec2 LV V1 mean P.1 mmHg AI P1/2t: 654.4 msec LV V1 mean: 48.3 cm/sec LV V1 VTI: 16.4 cm TR max ankit: 263.3 cm/sec TR max P.7 mmHg ECHO/Echo Complete W/ Contrast Interpretation Summary Normal LV size. The left ventricular ejection fraction is 45 %. Stage 1 diastolic dysfunction. Mild (1+) aortic valve insufficiency. Contrast injection was performed. Ordering Physician: Gabriel Coleman Performed By: Jarrett Torres RCS
[2025-06-16 04:59] LABS: Troponin T High Sens 2 HR 53 ng/L (<=22)
[2025-06-16] MEDS: 0.9% Normal Saline (1000mL) 1,000 ML 50 ML IV (05:25)
[2025-06-16 06:18] LABS: Troponin T High Sens 4 HR 53 ng/L (<=22)
[2025-06-16 06:33] LABS: FOLATES,SERUM (FOLIC ACID) 19.40 ng/mL (4.60-34.80)
[2025-06-16 06:47] LABS: Alcohol, Blood (Medical)-Serum < 10.1 mg/dL (<=10.0)
[2025-06-16 07:19] LABS: Cholesterol 155 mg/dL (<=200); Low Density Lipoprotein Calc. 79 mg/dL; Triglycerides 196 mg/dL; Very Low Density Lipoprotein 39 mg/dL (5-40); Vitamin B12 544 pg/mL (180-914); cholesterol:hdl ratio screen 4.26
--- NOTE | 2025-06-16 09:07 | PN_ITS ---
Progress Note Patient is a 65-year-old gentleman admitted with confusion. He was also reported to have a left facial droop. Patient was admitted for workup of di sorientation. Physical Exam Narrative GENERAL: cooperative HEENT: Atraumatic; normocephalic EYES; Anicteric, Normal Conjunctiva NECK; supple, normal thyroid, RESPIRATORY: Diminished to auscultation CARDIOVASCULAR: Regular S1 S2, GI: soft, normoactive bowel sounds, : No Renal angle tenderness; EXTREMITIES: No edema, no clubbing, MUSCULOSKELETAL: no muscle wasting NEURO: Awake; no lateralizing signs. 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 Suspected CVA ? Patient presented with disorientation as well as expressive aphasia. Admitted to a monitored bed placed on Q4 neurochecks. MRI was ordered for subsequent alicia l 2. 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 Patient is on lorlatinib; plan is for patient to resume care with primary oncologist following discharge 3. Diabetes mellitus type II -patient's oral hypoglycemics held. Placed on long acting insulin, Accu-Cheks a.c. and at bedtime and covered with sliding scale insulin 4. Dyslipidemia ?Patient is on statin therapy, continued at home dose 5. Seizure disorder Patient is on levetiracetam, did continue home 7. Depression with anxiety ? Patient is on sertraline but cannot 8. Class I obesity with BMI of 33 ? Complicating care weight loss advised 9. Renal failure?acute versus chronic ? Patient was placed on IV fluids with subsequent monitoring of electrolyte 10.DVT prophylaxis ? On enoxaparin Time spent in the patient's overall evaluation,decision-making process, review of diagnostic data, adjustment of management, discussion with other providers, nursing nursing and ancillary staff involved in patient's care documentation, 32 Minutes Advance planning; did discuss with the patient regarding advanced directives as well as CODE STATUS. Did explain the various scenarios involved ( FULL CODE, DNR CCA, DNR CCA with no intubation, and DNR CC and what each meant) patient elected elected to remain full code with CPR intubation if warranted. Order was placed. Time spent on discussion 16 minutes. Visit Charges Inpatient E&M: 95841 PROLNG IP/OBS E/M EA 15 MIN Multi Select Codes Visit Charges Visit Charges: 53697 PROLNG IP/OBS E/M EA 15 MIN Hospitalists' Procedures Procedures: 11299 Advncd Care Plan 30 Min
[2025-06-16] MEDS: Vitamin B Comp W-C Capsule 1 CAP PO (09:11)
[2025-06-16] MEDS: Insulin Glargine-YFGN 100 UNIT/ML Pen 30 UNIT SC ×2 (09:11→23:21)
[2025-06-16] MEDS: Aspirin E.C. 81 MG Tablet PO (09:11)
--- NOTE | 2025-06-16 12:28 | NEURO.CONS ---
Assessment and Plan: Neuro Assessment/Plan SHERI MCKINNON is a 65 M with a past medical history of NSCLC off treatment, known brain met s/p gamma knife surgery, being evaluated by Teleneurology for sudden confusion overnight and gradually worsening aphasia and confusion over the course of the last several months. On exam there is clear spatial difficulty concerning for R hemispheric involvement. Has had multiple scans that do not clearly show intracranial tumor spread according to the patient but (who has been sick herself) feels he is not a good historian. Based on history, at this time recommend evaluation for typical things that could cause a 65 yo w a history of intracranial disease to decompensate (seizure, infection) but also for other cancer related disease including leptomeningeal spread and paraneoplastic disease. Plan: - EEG, UA - MRI Brain with con - recommend serum paraneoplastic panel - after MRI Brain with con, recommend LP with the following labs: cell count, protein, glucose, paraneoplastic panel, cytology Will assess if needs to be transferred for OC based on these screening tests I personally attended this patient and spent a total time of 45minutes evaluating this patient including clinical assessment, review of chart, medical history imaging, and determining appropriate treatment and workup. HPI Consult Data Date of Consult: 06/16/25 HPI Narrative HPI Narrative: SHERI MCKINNON, is a 65 M with a past medical history of hyperlipidemia; on atorvastatin, obesity; with BMI of 32.7 this admission, DM-2; of unknown control on insulin glargine 40U sq BID, insulin lispro SSI TID AC and dulaglutide, history of non-small cell lung cancer; with metastasis to brain on lorlatinib, seizure disorder; on levetiracetam, depression; on sertraline and OA who presents to [facility] ER complaining of confusion and slurred speech. Mr. Mckinnon's reported to the ER physician his last known normal was around 8:30 PM when he went to bed but then when he woke up later around 1:15 AM the patient's noted he was acting funny and trying to go outside with his bare feet and underwear obviously confused. He then went to the kitchen seen telling his that he needed to use the bathroom and was about to start urinating before she intervened. She also noted slurred speech and a questionable transient drooping of the Left eye so she decided to bring him in for further evaluation and treatment. She also informed the ER physician that he does not take his insulin as prescribed and that he had a small mass in his brain with subsequent gamma knife treatments to the point where it shrunk down to the size of a pea but they had not had follow-up imaging since that time. She also mentioned that he is supposed to be on chemotherapy but his insurance has not covered it yet so he has not started it yet. Finally, she denies any similar previous episodes like this in the past. In the ER he was initially called as a 'stroke alert' with head CT without contrast that revealed no acute intracranial findings followed by CTA of the head and neck with IV contrast that revealed no acute cervical or intracranial arterial pathology, no thrombosis, high-grade stenosis, dissection or aneurysm with patent dural venous sinuses. He was then admitted to the PCU under observation status for ongoing care for stay that is expected to be less than 2 midnights. Neurologic History Still having difficulty getting words out. Patient states he is feeling well but does not remember what happened last night. Endorses he had a brain tumor on the L side of the brain. Denies recently headaches. Was dx with NSCLC 4 yrs ago, at [facility], PAtient was on a chemo pill and suddenly pt could not afford the pill, in Nov stopped the pill. The gamma knife to the brain was done at [facility], and he had normal MRI as ofr 2 months ago (sx was done 4 yrs ago). Pt has had difficulty and that is when they found the brain tumor. Right after they did gamma knife, there was a yr while things were stable and good. For the last 3 yrs speech has gotten worse. Over the last year he has increased difficulty doing stuff around the house. was in hospital for 5 months and came home in January 2025 and he had not cared for the animals and he was behaving a lot different compared to prior. Neurologic Exam -? General: Laying comfortably in bed; in no acute distress. -? HENT: Normal oropharynx and mucosa. Normal external appearance of ears and nose. Exophthalmos. -? Neck: Supple, no pain or tenderness -? CV:? No peripheral edema. -? Pulmonary:? Normal respiratory effort. -? Ext: No cyanosis, edema, or deformity -? Skin: No rash. Normal palpation of skin.? -? Musculoskeletal: full range of motion; no joint tenderness. Normal digits and nails by inspection. No clubbing. -? NEURO: -? Mental Status: The patient was alert and oriented to time, place, and person. Normal recent/remote memory, concentration, and general fund of knowledge. -? Language: speech is clear.? Naming, repetition, fluency, and comprehension intact. -? Cranial Nerves: PERRL 3 mm/brisk. EOMI, visual cramer full, no facial asymmetry, facial sensation intact, hearing intact, tongue midline there is tremor in the tongue present -? Motor: normal bulk, tone, and strength throughout. No pronator drift or satelliting. Upper and lower extremities equal bilaterally. -? Detailed strength exam as performed by the nurse/JAYASHREE and witnessed by the physician: R L SA 5 5 EE EF 5 5 WE WF Aba Therapist 5 5 HF 5 5 KE KF DF 5 2 PF Spatial difficulty maneuvering the L leg and arm -? Tone: is normal and bulk is normal -? Sensation- Intact to light touch bilaterally -? Coordination: No dysmetria on [id number], finger follow finger or [id number] but has difficulty following the commands on the L -? Gait- deferred [facility] Medical History (Updated 06/16/25 @ 03:[address] Gabriel Coleman, DO) High cholesterol Diabetes Small cell lung cancer Medical History unable to obtain Home Medications ?Medication ?Instructions ?Recorded ?Last Taken ?Type coenzyme Q10 300 mg capsule (Co 600 mg PO DAILY 05/17/16 Unknown History Q-10) omega-3 fatty acids-fish oil 300 1 ea PO DAILY 05/17/16 Unknown History mg-1,000 mg capsule atorvastatin 20 mg tablet 20 mg PO QHS 06/16/25 Unknown History dulaglutide 4.5 mg/0.5 mL 4.5 mg subcut QWEEK 06/16/25 Unknown History subcutaneous pen injector (Trulicity) insulin glargine U-300 conc 300 40 unit subcut BID 06/16/25 Unknown History unit/mL (3 mL) subcutaneous pen (Toujeo Max U-300 SoloStar) insulin lispro 100 unit/mL 1 sliding scale dose subcut TIDCM 06/16/25 Unknown History subcutaneous pen levetiracetam 750 mg tablet 750 mg PO BID 06/16/25 Unknown History lorlatinib 100 mg tablet (Lorbrena) 100 mg PO DAILY 06/16/25 Unknown History sertraline 100 mg tablet 100 mg PO DAILY 06/16/25 Unknown History terbinafine HCl 250 mg tablet 250 mg PO DAILY 06/16/25 Unknown History vitamin B complex 1 tab PO DAILY 06/16/25 Unknown History Allergy/AdvReac Type Severity Reaction Status Date / Time No Known Allergies Allergy Verified 09/01/22 22:37 Family History no significant family his Surgical History unable to obtain Social History Smoking Status: Never smoker Vital Signs Vital Signs Vital Signs: 06/16/25 01:10 06/16/25 01:10 06/16/25 01:14 Temperature 98.6 F 98.7 F Temperature Source Oral Oral Pulse Rate 93 94 Respiratory Rate 16 16 Respiratory Effort Normal Respiratory Pattern Normal Blood Pressure 139/87 H 159/82 H Blood Pressure Mean 104 107 Blood Pressure Source Blood Pressure Position Blood Pressure Location Pulse Ox 95 96 Oxygen Delivery Method Room Air Room Air 06/16/25 01:31 06/16/25 01:39 06/16/25 01:45 Temperature Temperature Source Pulse Rate 88 91 Respiratory Rate 18 16 Respiratory Effort Respiratory Pattern Blood Pressure 143/89 H 158/79 H Blood Pressure Mean 107 105 Blood Pressure Source Blood Pressure Position Blood Pressure Location Pulse Ox 96 96 96 Oxygen Delivery Method Room Air Room Air Room Air 06/16/25 02:15 06/16/25 02:45 06/16/25 03:00 Temperature Temperature Source Pulse Rate 86 85 86 Respiratory Rate 16 18 16 Respiratory Effort Respiratory Pattern Blood Pressure 150/77 H 145/84 H 142/92 H Blood Pressure Mean 101 104 108 Blood Pressure Source Blood Pressure Position Blood Pressure Location Pulse Ox 96 96 96 Oxygen Delivery Method Room Air Room Air Room Air 06/16/25 03:18 06/16/25 03:38 06/16/25 04:00 Temperature 98.1 F Temperature Source Pulse Rate 83 86 Respiratory Rate 18 16 Respiratory Effort Respiratory Pattern Blood Pressure 146/88 H 145/88 H Blood Pressure Mean 107 107 Blood Pressure Source Blood Pressure Position Blood Pressure Location Pulse Ox 97 97 98 Oxygen Delivery Method Room Air Room Air 06/16/25 05:09 06/16/25 08:05 Temperature 97.9 F Temperature Source Oral Pulse Rate 86 Respiratory Rate 16 Respiratory Effort Respiratory Pattern Blood Pressure 161/82 H Blood Pressure Mean 108 Blood Pressure Source Monitor Blood Pressure Position Semi-Fowlers Blood Pressure Location Right Arm Pulse Ox 97 96 Oxygen Delivery Method Room Air Room Air Weight Weight: 110.7 kg Body Mass Index (BMI) 33.0 EEG Results Procedure Details EEG Procedure Details: SHERI MCKINNON is a 65 year old M with a past medical history of , who presents for evaluation of Electroencephalogram on DATE at TIME Lab / Micro Data 06/16/25 01:20 06/16/25 01:20 Labs: Laboratory Results - last 24 hr 06/16/25 01:17: POC Glucose 102 06/16/25 01:20: WBC 9.7, RBC 4.18 L, Hgb 13.4, Hct 36.4 L, MCV 87.1, MCH 32.1 H, MCHC 36.8 H, RDW Std Deviation 39.3, RDW Coeff of Rajiv 12.4, Plt Count 136 L, MPV 9.5, Immature Gran % (Auto) 0.300, Neut % (Auto) 68.0, Lymph % (Auto) 21.1, Coffey % (Auto) 6.4, Eos % (Auto) 3.6, Baso % (Auto) 0.6, Absolute Neuts (auto) 6.6, Absolute Lymphs (auto) 2.04, Nucleated RBC % 0, PT 12.7, INR 0.9, APTT 25.2, Sodium 137, Potassium 3.3, Chloride 104, Carbon Dioxide 19.1 L, Anion Gap 15, BUN 30 H, Creatinine 1.38 H, Estim Creat Clear Calc 67.30, Est GFR (MDRD) Non-Af 56 L, BUN/Creatinine Ratio 21.4 H, Glucose 102 H, Calcium 9.1, Troponin T High Sens 20 06/16/25 03:27: Troponin T Hi Sens 2 Hr 53 H 06/16/25 05:25: Hemoglobin A1c 8.1 H, Troponin T Hi Sens 4Hr 53 H, Triglycerides 196, Cholesterol 155, LDL Cholesterol, Calc 79, VLDL Cholesterol 39, HDL Cholesterol 36 L, Cholesterol/HDL Ratio 4.26, Vitamin B12 544, Serum Folate 19.40, TSH 1.930, Ethyl Alcohol < 10.1 06/16/25 06:48: POC Glucose 195 H Rhythm Strip Rhythm Strip: Sinus Rhythm Rate: 90 Ectopy: None Imaging Radiology Impression Brain CT 06/16/25 01:29 IMPRESSION: No acute intracranial findings Reading Location: [place] [id number] Head/Neck CTA 06/16/25 01:29 IMPRESSION: No acute cervical or intracranial arterial pathology. No thrombosis, high-grade stenosis, dissection, or aneurysm. Patent dural venous sinuses. Reading Location: [place] [id number] Brain MRI 06/16/25 03:45 IMPRESSION: 1. No acute abnormality visualized on MRI brain given limitations. 2. Chronic findings as described. Reading Location: [facility] Active Medications Active Medications Active Medications: Current Medications Generic Name Dose Route Start Last Admin Trade Name Freq PRN Reason Stop Dose Admin Acetaminophen 650 mg 06/16/25 04:41 Acetaminophen 325 Mg Tablet PO Q6H PRN PRN Pain 1-10 or Fever Aspirin 81 mg 06/16/25 08:00 06/16/25 09:11 Aspirin E.C. 81 Mg Tablet PO 81 mg BREAKFAST SALMA Administration Atorvastatin Calcium 20 mg 06/16/25 03:46 06/16/25 05:28 Atorvastatin Calcium 20 Mg Tablet PO 20 mg QHS SALMA Administration Sodium Chloride 1,000 mls @ 50 mls/hr 06/16/25 03:46 06/16/25 05:25 IV 06/16/25 23:45 50 mls/hr .Q20H SALMA Administration Insulin Glargine 30 unit 06/16/25 10:00 06/16/25 09:11 Insulin Glargine-Yfgn 100 Unit/Ml Pen SC 30 unit BID SALMA Administration Labetalol HCl 20 mg 06/16/25 01:23 Labetalol 20 Mg/4 Ml Vial IV 06/17/25 01:24 X1 PRN BLOOD PRESSURE Levetiracetam 750 mg 06/16/25 10:00 06/16/25 09:11 Levetiracetam 750 Mg Tablet PO 750 mg BID SALMA Administration Multivitamins 1 cap 06/16/25 10:00 06/16/25 09:11 Vitamin B Comp W-C Capsule PO 1 cap DAILY SALMA Administration Unajf-8-Shhp Ethyl Esters 1 gm 06/16/25 10:00 06/16/25 09:11 Lawson-3 Acid Ethyl Esters 1 Gm Capsule PO 1 gm DAILY SALMA Administration Sertraline HCl 100 mg 06/16/25 10:00 06/16/25 09:11 Sertraline 100 Mg Tablet PO 100 mg DAILY SALMA Administration Sodium Chloride 10 - 40 ml 06/16/25 05:00 0.9% Saline Lock 10 Ml Syringe IV UD PRN SALINE FLUSH NIHSS NIHSS Nursing Documentation NIHSS Nursing Documentation: NIHSS: Ischemic Stroke/TIA Start: 06/16/25 04:41 Text: For PCU Patients: NIH and Neuro Check every 4 Status: Active hours, PRN and with change in RN caregiver. Freq: [id number] Protocol: Activity Type Activity Date Activity User E-sign Co-sign Detail Recorded Client Recorded Date Recorded By Document 06/16/25 10:00 [facility] desktop 06/16/25 10:44 [facility] 06/16/25 10:00 NIH Stroke Scale [NIHSS] A score of 0 is normal or asymptomatic . Total possible score is 42. Inpatient: RN or Physician to activate a stroke alert for onset of new stroke symptoms or with NIHSS increase >/= 3 points. Following change in neurological status, NIHSS will be performed per physician order or more frequently PRN. -1a. Level of Consciousness 0 - Alert; keenly responsive -1b. LOC Questions 0 - Answers BOTH questions correctly -1c. LOC Commands 0 - Performs BOTH tasks correctly -2. Best Gaze 0 - Normal -3. Visual 0 - No visual loss -4. Facial Palsy 0 - Normal symmetrical movements -5a. Left Arm 0 - No drift; arm holds 90 ( or 45) degrees for full 10 seconds -5b. Right Arm 0 - No drift; arm holds 90 ( or 45) degrees for full 10 seconds -6a. Left Leg 0 - No drift; leg holds 30- degree position for full 5 seconds -6b. Right Leg 0 - No drift; leg holds 30- degree position for full 5 seconds -7. Limb Ataxia 0 - Absent -8. Sensory 0 - Normal; no sensory loss -9. Best Language 1 - Mild-to- moderate aphasia; -10. Dysarthria 1 = Mild-to- moderate dysarthria; -11. Extinction and Inattention 0 - No abnormality -Total 2 Query Text:A score of 0 is normal or asymptomatic. Total possible score is 42 . ED: Notify Physician for NIHSS increase by > / = 3 points. Inpatient: RN or Physician to activate a stroke alert for NIHSS increase of > / = 3 points. Coma Scale [Assess] -Eye Opening Spontaneous -Motor Obeys Commands -Verbal Oriented [Total] -Coma Scale Total 15
[2025-06-16] MEDS: 0.9% Saline Lock 10 ML Syringe IV (23:22)
[2025-06-17] VITALS (7 sets, daily range): BP systolic 138–169; BP diastolic 74–91; PULSE 82–90; RESP 15–16; TEMP 36.6–36.8; O2SAT 93–97; BMI 33.0
--- NOTE | 2025-06-17 09:00 | MRI_ITS ---
PROCEDURE: BRAIN WITH CONTRAST N/A REASON FOR EXAM: ALTERED MENTAL STATUS, HISTORY OF LUNG CA WITH MET TECHNIQUE: BRAIN WITH CONTRAST T1 pre contrast, postcontrast T1 multiplanar and multisequence images were obtained. CONTRAST: 22 cc Clariscan COMPARISON: June 16, 2025 MRI FINDINGS: Brain: There is a 1.1 by 0.5 by 0.6 cm enhancing focus at the left precentral cortex, axial image 21/26, coronal image 20/36. The prior exam shows increased T2 and FLAIR signal in the cortex in this region. There is a 0.6 x 0.6 cm enhancing focus at the internal surface of the calvarium in meninges in the left mid parietal region, axial image 22/36. Diffusion: Not included Ventricles: Within normal limits Major Intracranial Vessels: Unremarkable Sinuses: Clear Mastoids: Clear MRI/Brain WITH Contrast IMPRESSION: There is a 1.1 by 0.5 by 0.6 cm enhancing focus at the left precentral cortex, axial image 21/26, coronal image 20/36. The prior exam shows increased T2 and FLAIR signal in the cortex in this region. There i s a 0.6 x 0.6 cm enhancing focus at the internal surface of the calvarium in meninges in the left mid parietal region, axial ed ge 22/36. These lesions are suspicious for metastatic disease. Follow-up is recommended. Reading Location: [facility]
--- NOTE | 2025-06-17 10:59 | NURSING ---
spoke with Dr. Odonnell (Radiologist) and was given update on recent MRI results. This nurse updated Dr. Calabrese
[2025-06-17] MEDS: Insulin Glargine-YFGN 100 UNIT/ML Pen 30 UNIT SC (11:05)
[2025-06-17] MEDS: Aspirin E.C. 81 MG Tablet PO (11:06)
--- NOTE | 2025-06-17 11:06 | CASEMGMT ---
Social Work Pt completed a PHQ-9 w/pt. Pt scored a 3. Pt states the symptoms are more related to what is going on with him medically. Pt also states however he feels down sometimes as he has lost his mother, father and brother. Pt states they were all really close. SW inquired if he has done bereavement counseling, pt states he did with his online advertising manager. SW offered to give pt information for further grief counseling, pt declined information. No further social service needs at this time. KHALIDA Hussein
--- NOTE | 2025-06-17 12:39 | CASEMGMT ---
Social Work Pt had asked Nan about speaking wMaureen from [employer] about seeing if pt would qualify for any financial assistance/Medicaid. He asked however if Krystle can call his significant other to set up a meeting w/Krystle, pt and significant other. SW asked pt for clarification on who the significant other is, he states is Radhalidya Bloom who is listed as the exwife. Pt states that is his significant other. SW changed Radha from exwife to significant other in [facility]. SW left a message for Krystle to follow up w/pt and Radha. KHALIDA Hussein
--- NOTE | 2025-06-17 13:03 | CASEMGMT ---
MARIUSZ Met with patient to complete VEE form. VEE form and its content were verbally explained and patient's questions were answered to the best of my ability.? Patient voiced some understanding but was uncomfortable signing form.? Patient provided a copy of VEE form and original placed in patient's chart.? Patient had no further questions. Nan Mcgrath, Discharge Planning Asst
--- NOTE | 2025-06-17 15:42 | DCINST_ITS ---
Discharge Instructions DC O2, CPAP, BIPAP needs Home O2 Discharge instructions: No Dressing / Incision Discharge Activity: Return to Normal Activity and May Not Drive (Refrain from driving this week, if you are at baseline on 06/24/2025, you can resume driving) Weight Bearing Status: Full weight bearing Follow Up Care Test Results: Test results from this visit will be discussed in further detail at your follow- up appointment, if applicable. Discharge Plan Admission Admit Date/Time: 06/16/25 03:38 Primary Reason for Your Visit: Confusion, mental status change Attending Provider: Girish Calabrese Primary Care Provider: Demond Kim Consulting Providers: Jose Angel Betancourt; Mary Sal; Meenakshi Neal; Yeison Dye; Cristin Bustillos; Sheeba Amador; Rikki Gomez; Bridget Farmer; BO CHURCHILL; Ankit Whitfield; Nela Tejada; Jovon Bañuelos; Korina Manuel; Roxy Todd; Young Nobles; Gina James; Greg Madera; Aleksey Nazario; Jensen Ortega; Juan Luis Mcpherson; Kaci Flood; Akbar Renee; Michael Cardona; Jareth Harden; Lyly Benjamin; Jeremie Rossi; Gabriel Coleman; Gabriel Isabel Instructions Additional Instructions / Restrictions: If you are not contacted by your oncologist by , please call his office for follow-up Discharge Orders/Prescriptions Prescriptions: Continued Co Q-10 300 MG capsule 600 mg PO DAILY omega-3 fatty acids-fish oil 1 EACH capsule 1 ea PO DAILY sertraline 100 mg tablet 100 mg PO DAILY terbinafine HCl 250 mg tablet 250 mg PO DAILY Lorbrena 100 mg tablet 100 mg PO DAILY insulin lispro 100 unit/mL insulin pen 1 sliding scale dose SUBCUT TIDCM Patient Comments: INJECT 30 UNITS SUBCUTANEOUSLY WITH BREAKFAST AND 34 UNITS WITH LUNCH AND 34 UNITS WITH SUPPER PLUS SLIDING SCALE: 3 UNITS FOR EVERY 50 OVER 150 (150 UNITS DAILY TDD) SLIDING SCALE ON PRE MEAL BLOOD SUGAR ONLY insulin glargine U-300 conc [Toujeo Max U-300 SoloStar] 300 unit/mL (3 mL) insulin pen 40 unit subcut BID Trulicity 4.5 mg/0.5 mL pen injector 4.5 mg subcut QWEEK atorvastatin 20 mg tablet 20 mg PO QHS levetiracetam 750 mg tablet 750 mg PO BID vitamin B complex Tablet 1 tab PO DAILY Referrals / Follow Up: Demond Kim MD [Primary Care Provider] - Within 2 Weeks Disposition Disposition (needs filled in before D/C Order can be placed): Home, Self Care
--- NOTE | 2025-06-17 15:53 | DS.PCM_ITS ---
Providers Date of Admission: 06/16/25 Date of Discharge: 06/17/25 Primary Care Physician: Dr. Demond Kim MD Consultations 06/16/25 04:41 Consult: Tele-Neurology Routine Consulting Provider: [facility] Reason for Consult: Acute Ischemic Stroke/TIA EMERGENT Consult: No MD Notified: Yes Date Notified: 06/16/25 Time Notified: 05:19 Method of Notification: Answering Service Method of Consult:: Telemedicine Nursing Unit Staff Notify [facility] of Tele-Neurology Consult: Yes Reason For Visit: TIA VERSUS CVA; WITH MILD APHASIA, Diagnosis Discharge Diagnosis (1) Disorientation: Status: Acute Code(s): R41.0 - Disorientation, unspecified Plan 1. 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 #3 type 2 diabetes #4 cerebrovascular disease #5 seizure disorder Medications at Discharge Home Medications coenzyme Q10 300 mg capsule (Co Q-10) 600 mg PO DAILY supplement 05/17/16 omega-3 fatty acids-fish oil 300 mg-1,000 mg capsule 1 ea PO DAILY supplement 05/17/16 atorvastatin 20 mg tablet 20 mg PO QHS cholesterol 06/16/25 dulaglutide 4.5 mg/0.5 mL subcutaneous pen injector (Trulicity) 4.5 mg subcut QWEEK diabetes 06/16/25 insulin glargine U-300 conc 300 unit/mL (3 mL) subcutaneous pen (Toujeo Max U- 300 SoloStar) 40 unit subcut BID diabetes 06/16/25 insulin lispro 100 unit/mL subcutaneous pen 1 sliding scale dose subcut TIDCM diabetes 06/16/25 levetiracetam 750 mg tablet 750 mg PO BID seizures 06/16/25 lorlatinib 100 mg tablet (Lorbrena) 100 mg PO DAILY 06/16/25 sertraline 100 mg tablet 100 mg PO DAILY mental health 06/16/25 terbinafine HCl 250 mg tablet 250 mg PO DAILY infection 06/16/25 vitamin B complex 1 tab PO DAILY vitamin 06/16/25 Hospital Course Operations None Procedures 2-D Echocardiogram Summary of Care Provided Minutes Spent on Discharge: 32 Hospital Course: 65-year-old white male was seen in the emergency room at [facility] with a chief complaint of confusion. Patient had activities at home which were bizarre, according to the , patient was trying to go outside in bare feet and underwear saying he had something to do but then he acted confused and could not think of what he wanted to say. She noticed his left eyelid seemed it was droopy, he went to bed and then got up with the same symptomology. He arrived to the ER at approximately 1:15 AM patient has a history of non- small cell lung cancer with mets to the brain previously and radiation treatment. He was supposed to be started on new chemotherapy but insurance had not approved it as of yet. His oncologist is at the [facility]. Stroke alert was called, patient had some expressive aphasia which presented similar to disorientation. Patient was outside the window for thrombolytics, case was discussed with stroke neurology, CT of the brain and CTA of the head and neck was performed there there is no evidence of large vessel occlusion or CVA. Patient was placed in observation status on PCU, MRI of the brain was obtained which showed an additional intracranial lesion which was not detected on a previous MRI of the brain in January of this year according to the patient's oncologist who I talked to by telephone. There was a second small brain lesion but this is a chronic finding according to his oncologist. His oncologist stated that his non-small cell cancer was highly treatable, it was an adenocarcinoma with certain markers that benefited the patient. I went over this with the patient's and the patient. On 06/17/2025, patient was seen and examined: On examination he appeared in good health and spirits. Vital signs as documented. Skin warm and dry and without overt rashes. Neck without JVD, neck was supple, trachea midline, thyroid was normal. Lungs clear bilaterally, normal air movement was noted. Heart exam notable for regular rhythm, normal sounds and absence of murmurs, rubs or gallops. Abdomen unremarkable and without evidence of organomegaly, masses, or abdominal aortic enlargement. Bowel sounds are present, abdomen is not distended. Extremities nonedematous, no cyanosis was noted, no clubbing was noted. Neuro: Cranial nerves II through XII are grossly intact, no focal motor deficits were noted, sensation to light touch and pinprick intact, motor exam 5/5 throughout. Psych: Patient is alert and oriented x3, he does not appear anxious or depressed, he does not appear agitated. Patient appears stable for discharge home on 06/17/2025 Weight / BMI Weight Weight: 110.7 kg Body Mass Index (BMI) 33.0 ABG / Lab / Microbiology Data 06/16/25 01:20 06/16/25 01:20 Laboratory: Laboratory Results - last 24 hr 06/16/25 16:21: POC Glucose 286 H 06/16/25 23:19: POC Glucose 229 H 06/17/25 06:15: POC Glucose 228 H 06/17/25 12:31: POC Glucose 284 H Radiography Diagnostic Testing: Radiology Impression Echocardiogram 06/16/25 03:45 Interpretation Summary Normal LV size. The left ventricular ejection fraction is 45 %. Stage 1 diastolic dysfunction. Mild (1+) aortic valve insufficiency. Contrast injection was performed. Ordering Physician: Gabriel Coleman Performed By: Jarrett Torres RCS Brain MRI 06/17/25 09:00 IMPRESSION: There is a 1.1 by 0.5 by 0.6 cm enhancing focus at the left precentral cortex, axial image 21/26, coronal image 20/36. The prior exam shows increased T2 and FLAIR signal in the cortex in this region. There is a 0.6 x 0.6 cm enhancing focus at the internal surface of the calvarium in meninges in the left mid parietal region, axial image 22/36. These lesions are suspicious for metastatic disease. Follow-up is recommended. Reading Location: [facility] Instructions Weight Bearing Status: Full weight bearing DC O2, CPAP, BIPAP Needs Home O2 Discharge instructions: No Meaningful Use Info Meaningful Use Meaningful Use Diagnoses (Choose all that apply): None applicable Discharge Plan Admission Admit Date/Time: 06/16/25 03:38 Primary Reason for Your Visit: Confusion, mental status change Attending Provider: Girish Calabrese Primary Care Provider: Demond Kim Consulting Providers: Jose Angel Betancourt; Mary Sal; Meenakshi Neal; Yeison Dye; Cristin Bustillos; Sheeba Amador; Rikki Gomez; Bridget Farmer; BO CHURCHILL; Ankit Whitfield; Nela Tejada; Jovon Bañuelos; Korina Manuel; Roxy Todd; Young Nobles; Gina James; Greg Madera; Aleksey Nazario; Jensen Ortega; Juan Luis Mcpherson; Kaci Flood; Akbar Renee; Michael Cardona; Jareth Harden; Lyly Benjamin; Jeremie Rossi; Gabriel Coleman; Gabriel Isabel Instructions Additional Instructions / Restrictions: If you are not contacted by your oncologist by , please call his office for follow-up Discharge Orders/Prescriptions Prescriptions: Continued Co Q-10 300 MG capsule 600 mg PO DAILY omega-3 fatty acids-fish oil 1 EACH capsule 1 ea PO DAILY sertraline 100 mg tablet 100 mg PO DAILY terbinafine HCl 250 mg tablet 250 mg PO DAILY Lorbrena 100 mg tablet 100 mg PO DAILY insulin lispro 100 unit/mL insulin pen 1 sliding scale dose SUBCUT TIDCM Patient Comments: INJECT 30 UNITS SUBCUTANEOUSLY WITH BREAKFAST AND 34 UNITS WITH LUNCH AND 34 UNITS WITH SUPPER PLUS SLIDING SCALE: 3 UNITS FOR EVERY 50 OVER 150 (150 UNITS DAILY TDD) SLIDING SCALE ON PRE MEAL BLOOD SUGAR ONLY insulin glargine U-300 conc [Toujeo Max U-300 SoloStar] 300 unit/mL (3 mL) insulin pen 40 unit subcut BID Trulicity 4.5 mg/0.5 mL pen injector 4.5 mg subcut QWEEK atorvastatin 20 mg tablet 20 mg PO QHS levetiracetam 750 mg tablet 750 mg PO BID vitamin B complex Tablet 1 tab PO DAILY Referrals / Follow Up: Demond Kim MD [Primary Care Provider] - Within 2 Weeks Disposition Disposition (needs filled in before D/C Order can be placed): Home, Self Care Charges/Coding Visit Charges Inpatient E&M: 14653 Disch Hosp >30min
== END 2025-06-17 17:46 | disposition home or self-care (01) ==
LOC: ED 03:12 → PCU 03:52
PROVIDERS: Internal Medicine; Admitting Provider Internal Medicine; Emergency Provider Emergency Medicine; PCP Family Medicine; Visit Provider Internal Medicine
DX: R41.0 Disorientation, unspecified (principal); C79.31 Secondary malignant neoplasm of brain; C34.90 Malignant neoplasm of unspecified part of unspecified bronchus or lung; G40.909 Epilepsy, unspecified, not intractable, without status epilepticus; E11.22 Type 2 diabetes mellitus with diabetic chronic kidney disease; Z79.4 Long term (current) use of insulin; E66.9 Obesity, unspecified; E78.00 Pure hypercholesterolemia, unspecified; Z92.3 Personal history of irradiation; Z79.85 Long-term (current) use of injectable non-insulin antidiabetic drugs; Z68.33 Body mass index [BMI] 33.0-33.9, adult; R47.01 Aphasia; N18.9 Chronic kidney disease, unspecified; R47.81 Slurred speech; Z79.899 Other long term (current) drug therapy; F32.A Depression, unspecified; M19.90 Unspecified osteoarthritis, unspecified site; R47.1 Dysarthria and anarthria
CPT/HCPCS: 36415; 70450; 70496; 70498; 70551; 70552; 80048; 80061; 82077; 82607; 82746; 82962; 83036; 84443; 84484; 85025; 85610; 85730; 92507; 92610; 93005; 93306; 94762; 95819; 96105; 97161; 97165; 97802; 99221; 99285; A9575; Q9957; Q9967; A4216; C8929; G0378